=== PATIENT | male | born 2000 | race Caucasian/White ===

== ENCOUNTER 2022-08-25 10:49 | Emergency (ER) | payer OTHER ==
[~2022-08-25] VITALS: Ht 182.9 cm; Wt 99.0 kg
[~2022-08-25 10:49] MED LIST: ORAPRED ODT15 MG OR; ZITHROMAX200 MG/5 M OR
[2022-08-25 11:17] VITALS: BP 134/93
[2022-08-25 11:30] VITALS: BP 129/88
[2022-08-25 11:56] LABS: BASO% 0.1 % (0-3); EOS% 1.1 % (0-8); IMMATURE GRANULOCYTES 0.1 % (0.0-5.0); LYMPH% 26.9 % (15-41); MEAN CORPUSCULAR HGB 30.3 pG CALC (26.0-32.0); MONO% 11.4 % (2-13); NEUT# 4.29 thou/uL (1.82-7.42); NEUT% 60.4 % (42-76); RED BLOOD COUNT 5.71 mill/uL (4.70-6.10); RED CELL DISTRI WIDTH 11.9 % (11.5-15.5)
[2022-08-25 12:00] LABS: BUN 14 mg/dL (9-20); BUN/CREATININE RATIO 17 (12-20 (CALC)); CHLORIDE 103 mmol/l (95-108); CREATININE 0.8 mg/dL (0.7-1.3); GFR FOR AFR.AMER. > 60 ML/MIN (>=60 (CALC)); GFR OTHER RACES > 60 ML/MIN (>=60 (CALC)); LIPASE 77 u/l (23-300); SGOT/AST 40 u/l (17-59); SODIUM 138 mmol/l (137-146); TOTAL PROTEIN 8.4 g/dL (6.3-8.2)
[2022-08-25 12:03] LABS: ALKALINE PHOSPHATASE 95 u/l (38-126); ANION GAP 13 (6-22 (CALC)); BILIRUBIN, TOTAL 0.8 mg/dL (0.2-1.3); CARBON DIOXIDE 26 mmol/l (22-30)
[2022-08-25 12:04] LABS: HEMATOCRIT 50.9 % (39.0-50.0); HEMOGLOBIN 17.3 g/dl (14.0-18.0); MEAN CELL VOLUME 89.1 fL CALC (80.0-100.0)
[2022-08-25 13:54] VITALS: BP 129/88
== END 2022-08-25 14:15 | disposition home or self-care (01) | DRG 90 ==
LOC: ED 10:49
PROVIDERS: Family Medicine
DX: S06.0X0A Concussion without loss of consciousness, initial encounter (principal); V49.40XA Driver injured in collision with unspecified motor vehicles in traffic accident, initial encounter; Y99.8 Other external cause status; M54.2 Cervicalgia; M54.9 Dorsalgia, unspecified; R10.9 Unspecified abdominal pain; R07.81 Pleurodynia
CPT/HCPCS: Q9967